=== PATIENT | male | born 1955 | race Caucasian/White ===

== ENCOUNTER 2017-09-25 20:44 | Inpatient (IN) | payer OTHER ==
[~2017-09-25] VITALS: Ht 182.9 cm; Wt 153.9 kg
[~2017-09-25 20:44] MED LIST: AMOXICILLIN500 MG PO; ASPIRIN81 M2 PO; BABY ASPIRIN81 M1 PO; DOXYCYCLINE HY100 MG PO; EXFORGE 5/321 TABLET PO; FISH OIL CONC1 EACH PO; FLEXERIL10 MG PO; MOTRIN400 MG PO; PERCOCET 5/31 TABLET PO; PRILOSEC40 MG PO
[2017-09-25 21:24] LABS: BASOPHIL (%) 0.5 % (0-1); EOSINOPHIL (%) 5.7 % (0-5); EOSINOPHIL COUNT 0.4 K/uL (0-0.3); HEMATOCRIT 38.6 % (38.0-50.0); HEMOGLOBIN 13.3 G/DL (12.5-16.6); IMMATURE GRANULOCYTE (%) 0.4 % (0.0-0.7); LYMPHOCYTE (%) 34.4 % (15-42); LYMPHOCYTE COUNT 2.7 K/uL (1.0-2.8); MCH 29.4 PG (29.0-34.0); MCHC 34.5 G/DL (30.0-36.0); MCV 85.4 FL (86-99); MONOCYTE (%) 5.8 % (3-12); MONOCYTE COUNT 0.5 K/uL (0-0.8); NEUTROPHIL (%) 53.2 % (45-76); NEUTROPHIL COUNT 4.1 K/uL (1.8-6.4); PLATELET COUNT 208 K/uL (156-360); RBC DIS.WIDTH-CV 13.7 % (11.8-14.6); RED BLOOD COUNT 4.52 M/uL (4.00-5.50); WHITE BLOOD COUNT 7.7 K/uL (4.1-10.2)
[2017-09-25 21:41] LABS: ALBUMIN 4.2 g/dL (3.2-4.8); CHLORIDE 103 mEq/L (99-109); POTASSIUM 3.9 mEq/L (3.7-5.4); SODIUM 140 mEq/L (136-147)
[2017-09-25 21:44] LABS: GLUCOSE 131 mg/dL (70-99)
[2017-09-25 21:46] LABS: TOTAL BILIRUBIN 0.6 mg/dL (0.0-1.0)
[2017-09-25 21:47] LABS: ALKALINE PHOSPHATASE 94 IU/L (3-129)
[2017-09-25 21:48] LABS: GFR ESTIMATE (CALCULATED) > 59 mL/min/ (58.99-99999)
[2017-09-25 21:49] LABS: AST (GOT) 24 IU/L (2-34); DIRECT BILIRUBIN 0.3 mg/dL (0.0-0.3); UREA NITROGEN (BUN) 19 mg/dL (9-23)
[2017-09-25 21:50] LABS: ALT (GPT) 33 IU/L (3-49)
[2017-09-25 21:51] LABS: LIPASE 30 U/L (1.0-51.0)
[2017-09-25 21:59] LABS: APPEARANCE SL.HAZY ((CLEAR)); BILIRUBIN NEGATIVE; BLOOD SMALL; COLOR YELLOW ((YELLOW)); GLUCOSE (STRIP) NEGATIVE; KETONES NEGATIVE; LEUKOCYTES NEGATIVE; NITRITE NEGATIVE; PROTEIN (STRIP) NEGATIVE; SPECIFIC GRAVITY 1.026 (1.000-1.030); UROBILINOGEN 0.2 MG/DL (0.2-1.0)
[2017-09-25 22:02] LABS: BACTERIA NONE SEEN /HPF; EPITHELIAL CELLS RARE /HPF; MUCUS 1+ /LPF; RED BLOOD CELLS 0-5 /HPF (0-5); WHITE BLOOD CELLS 0-5 /HPF (0-5)
[2017-09-26] MEDS ORDERED: PREDNISONE20 MG PO (00:02)
[2017-09-26] MEDS ORDERED: ZITHROMAX250 MG PO (00:02)
[2017-09-26] MEDS ORDERED: VENTOLIN HFA18 GM IH (00:02)
[2017-09-26] MEDS ORDERED: AMLODIPINE-VAL1 EAC3 PO (01:45)
[2017-09-26 06:01] VITALS: BP 136/78
[2017-09-26 11:51] VITALS: BP 143/80
[2017-09-26 13:26] LABS: HEMATOCRIT 35.1 % (38.0-50.0); MCH 29.3 PG (29.0-34.0); MCHC 34.2 G/DL (30.0-36.0); MCV 85.8 FL (86-99); PLATELET COUNT 171 K/uL (156-360); RBC DIS.WIDTH-CV 13.9 % (11.8-14.6); RBC DIS.WIDTH-SD 43.5 % (39-53); RED BLOOD COUNT 4.09 M/uL (4.00-5.50); WHITE BLOOD COUNT 11.7 K/uL (4.1-10.2)
[2017-09-26 13:49] LABS: ALBUMIN 3.9 G/DL (3.2-4.8); ALKALINE PHOSPHATASE 74 IU/L (3-129); ALT (GPT) 79 IU/L (3-49); AST (GOT) 55 IU/L (2-34); CHLORIDE 97 MEQ/L (99-109); CREATININE 0.7 MG/DL (0.6-1.3); GFR ESTIMATE (CALCULATED) > 59 mL/min/ (58.99-99999); GLUCOSE 120 mg/dL (70-99); TOTAL BILIRUBIN 0.6 MG/DL (0.0-1.0); TOTAL PROTEIN 6.2 G/DL (6.4-8.3); UREA NITROGEN (BUN) 11 mg/dL (9-23)
[2017-09-26 13:50] LABS: SODIUM 131 MEQ/L (136-147)
[2017-09-26 19:08] VITALS: BP 146/82
[2017-09-27 00:30] VITALS: BP 136/62
[2017-09-27 04:43] VITALS: BP 156/81
[2017-09-27 06:29] LABS: BASOPHIL (%) 0.4 % (0-1); BASOPHIL COUNT 0.1 K/uL (0-0.1); EOSINOPHIL (%) 1.4 % (0-5); EOSINOPHIL COUNT 0.2 K/uL (0-0.3); HEMATOCRIT 33.5 % (38.0-50.0); HEMOGLOBIN 11.2 G/DL (12.5-16.6); IMMATURE GRANULOCYTE (%) 0.6 % (0.0-0.7); LYMPHOCYTE (%) 12.3 % (15-42); LYMPHOCYTE COUNT 1.5 K/uL (1.0-2.8); MCH 28.7 PG (29.0-34.0); MCHC 33.4 G/DL (30.0-36.0); MCV 85.9 FL (86-99); MONOCYTE (%) 7.9 % (3-12); MONOCYTE COUNT 0.9 K/uL (0-0.8); NEUTROPHIL (%) 77.4 % (45-76); NEUTROPHIL COUNT 9.3 K/uL (1.8-6.4); PLATELET COUNT 184 K/uL (156-360); RBC DIS.WIDTH-CV 14.2 % (11.8-14.6); RBC DIS.WIDTH-SD 44.6 % (39-53)
[2017-09-27 07:01] LABS: ALBUMIN 3.6 G/DL (3.2-4.8); ALKALINE PHOSPHATASE 82 IU/L (3-129); CHLORIDE 97 MEQ/L (99-109); CREATININE 0.7 MG/DL (0.6-1.3); GFR ESTIMATE (CALCULATED) > 59 mL/min/ (58.99-99999); GLUCOSE 128 mg/dL (70-99); SODIUM 134 MEQ/L (136-147); TOTAL PROTEIN 5.9 G/DL (6.4-8.3); UREA NITROGEN (BUN) 8 mg/dL (9-23)
[2017-09-27 07:08] LABS: ALT (GPT) 186 IU/L (3-49); AST (GOT) 118 IU/L (2-34); TOTAL BILIRUBIN 1.3 MG/DL (0.0-1.0)
[2017-09-27 07:35] VITALS: BP 136/82
[2017-09-27 09:51] LABS: INTER. NORMALIZED RATIO 1.3
[2017-09-27 09:53] LABS: PTT 28.3 SEC (25-37)
[2017-09-27 11:51] VITALS: BP 137/72
[2017-09-28] VITALS (10 sets, daily range): BP systolic 97–147; BP diastolic 68–94
[2017-09-28 05:00] LABS: HEMATOCRIT 32.8 % (38.0-50.0); HEMOGLOBIN 11.1 G/DL (12.5-16.6); MCH 29.8 PG (29.0-34.0); MCHC 33.8 G/DL (30.0-36.0); MCV 87.9 FL (86-99); PLATELET COUNT 177 K/uL (156-360); RBC DIS.WIDTH-CV 14.6 % (11.8-14.6); RBC DIS.WIDTH-SD 47.3 % (39-53); RED BLOOD COUNT 3.73 M/uL (4.00-5.50); WHITE BLOOD COUNT 10.4 K/uL (4.1-10.2)
[2017-09-28 05:09] LABS: ALBUMIN 3.4 g/dL (3.2-4.8); CHLORIDE 101 mEq/L (99-109); SODIUM 140 mEq/L (136-147)
[2017-09-28 05:10] LABS: MAGNESIUM 2.1 mg/dL (1.3-2.7)
[2017-09-28 05:12] LABS: GLUCOSE 118 mg/dL (70-99)
[2017-09-28 05:15] LABS: ALKALINE PHOSPHATASE 90 IU/L (3-129)
[2017-09-28 05:16] LABS: CREATININE 0.9 mg/dL (0.6-1.3); GFR ESTIMATE (CALCULATED) > 59 mL/min/ (58.99-99999)
[2017-09-28 05:17] LABS: UREA NITROGEN (BUN) 10 mg/dL (9-23)
[2017-09-28 05:34] LABS: ALT (GPT) 232 IU/L (3-49); AST (GOT) 119 IU/L (2-34); TOTAL BILIRUBIN 1.3 mg/dL (0.0-1.0); TOTAL PROTEIN 5.5 g/dL (6.4-8.3)
[2017-09-29 03:26] VITALS: BP 143/80
[2017-09-29 06:07] LABS: HEMATOCRIT 29.8 % (38.0-50.0); HEMOGLOBIN 9.9 G/DL (12.5-16.6); MCH 28.9 PG (29.0-34.0); MCHC 33.2 G/DL (30.0-36.0); MCV 86.9 FL (86-99); PLATELET COUNT 208 K/uL (156-360); RBC DIS.WIDTH-CV 14.4 % (11.8-14.6); RBC DIS.WIDTH-SD 46.3 % (39-53); RED BLOOD COUNT 3.43 M/uL (4.00-5.50); WHITE BLOOD COUNT 10.9 K/uL (4.1-10.2)
[2017-09-29 06:20] LABS: ALBUMIN 3.1 G/DL (3.2-4.8); ALKALINE PHOSPHATASE 66 IU/L (3-129); ALT (GPT) 164 IU/L (3-49); AST (GOT) 70 IU/L (2-34); CHLORIDE 100 MEQ/L (99-109); CREATININE 0.8 MG/DL (0.6-1.3); GFR ESTIMATE (CALCULATED) > 59 mL/min/ (58.99-99999); GLUCOSE 124 mg/dL (70-99); POTASSIUM 3.7 MEQ/L (3.7-5.4); SODIUM 135 MEQ/L (136-147); TOTAL PROTEIN 6.1 G/DL (6.4-8.3); UREA NITROGEN (BUN) 13 mg/dL (9-23)
[2017-09-29 06:27] LABS: TOTAL BILIRUBIN 0.9 MG/DL (0.0-1.0)
[2017-09-29] MEDS ORDERED: AZITHROMYCIN500 M1 PO (07:45)
[2017-09-29] MEDS ORDERED: AUGMENTIN875 MG PO (07:46)
[2017-09-29 07:53] VITALS: BP 136/73
[2017-09-29] MEDS ORDERED: PHENERGAN DM SYR1 ML PO (09:59)
[2017-09-29 12:06] VITALS: BP 133/72
== END 2017-09-29 14:00 | disposition home or self-care (01) | DRG 417 ==
LOC: EME 20:44 → EDOF 09-26 04:09 → ENRESERV 09-26 04:11 → 5WEST 09-26 05:58 → 2EAST 09-26 14:19 → 5WEST 09-26 14:19 → 4WEST 09-26 14:19 → 5WEST 09-27 16:54 → ENRESERV 09-27 17:00 → 4WEST 09-28 03:44 → ENRESERV 09-28 16:05 → CANRESERV 09-28 16:06 → ENRESERV 09-28 16:06 → 2EAST 09-28 18:33 → EDPENDDISTM 09-29 → EDPENDDISDT 09-29 → ENPENDDIS 09-29 → 2EAST 09-29 14:00
PROVIDERS: Internal Medicine; Physician Assistant; Surgery
DX: K80.20 Calculus of gallbladder without cholecystitis without obstruction (principal); K80.50 Calculus of bile duct without cholangitis or cholecystitis without obstruction; K57.30 Diverticulosis of large intestine without perforation or abscess without bleeding; J18.1 Lobar pneumonia, unspecified organism; R07.9 Chest pain, unspecified; R05 Cough; I11.9 Hypertensive heart disease without heart failure; K82.8 Other specified diseases of gallbladder; E66.01 Morbid (severe) obesity due to excess calories; I25.10 Atherosclerotic heart disease of native coronary artery without angina pectoris; A69.20 Lyme disease, unspecified; E88.89 Other specified metabolic disorders; I96 Gangrene, not elsewhere classified; K42.9 Umbilical hernia without obstruction or gangrene; R16.0 Hepatomegaly, not elsewhere classified; E87.1 Hypo-osmolality and hyponatremia; R13.10 Dysphagia, unspecified; K21.9 Gastro-esophageal reflux disease without esophagitis; D69.1 Qualitative platelet defects; Q79.59 Other congenital malformations of abdominal wall; R35.0 Frequency of micturition; Z79.899 Other long term (current) drug therapy; Z79.82 Long term (current) use of aspirin; Z68.42 Body mass index [BMI] 45.0-49.9, adult
CPT/HCPCS: 71045; 71250; 74176; 76705; 80048; 80053; 80076; 81003; 83605; 83690; 83735; 85025; 85027; 85610; 85730; 87040; 87070; 87075; 87205; 87449; 87641; 88304; 93005; 94640; 94640 76; 94799; 99202; 99281; 99285; C9113; J0330; J0456; J0696; J1170; J1644; J1650; J1885; J2060; J2250; J2405; J2543; J3010; J7030; J7050; S0028; S0074